=== PATIENT | female | born 1970 | race Caucasian/White ===

== ENCOUNTER 2019-09-20 19:06 | Emergency (ER) | payer BC ==
[~2019-09-20] VITALS: Ht 167.6 cm; Wt 68.0 kg
[~2019-09-20 19:06] MED LIST: BUTALB-ACETAMI1 EACH PO; ESTROGEN-METHY1 EACH; PEPCID AC20 MG PO; PRISTIQ25 MG; PROGESTERO50 MG/1 ML; TUSNEL LIQUID178 ML PO; ZITHROMAX500 MG PO
== END 2019-09-20 22:24 | disposition home or self-care (01) ==
LOC: ER 19:06
DX: R51 Headache (principal)

== ENCOUNTER 2019-09-25 19:54 | Emergency (ER) | payer BC ==
[~2019-09-25] VITALS: Ht 167.6 cm; Wt 68.0 kg
== END 2019-09-26 00:07 | disposition home or self-care (01) ==
LOC: ER 19:54
DX: J06.9 Acute upper respiratory infection, unspecified (principal); Z20.828 Contact with and (suspected) exposure to other viral communicable diseases

== ENCOUNTER 2020-03-14 12:30 | Emergency (ER) | payer BC ==
[~2020-03-14] VITALS: Ht 167.6 cm; Wt 62.6 kg
[2020-03-14] MEDS ORDERED: MUCINEX DM ER1 EAC1 PO (17:09)
[2020-03-14] MEDS ORDERED: AIRBORNE EFFER1 EACH PO (17:09)
[2020-03-14] MEDS ORDERED: SYMBICORT 16010.2 GM IH (17:09)
[2020-03-14] MEDS ORDERED: IVERMECTIN3 MG PO (17:09)
== END 2020-03-14 17:57 | disposition home or self-care (01) ==
LOC: ER 12:30
DX: R06.02 Shortness of breath (principal); R05 Cough; Z20.822 Contact with and (suspected) exposure to COVID-19

== ENCOUNTER 2020-03-21 17:21 | Emergency (ER) | payer BC ==
[~2020-03-21] VITALS: Ht 167.6 cm; Wt 60.3 kg
[~2020-03-21 17:21] MED LIST changes: +AIRBORNE EFFER1 EACH PO; +IVERMECTIN3 MG PO; +MUCINEX DM ER1 EAC1 PO; +SYMBICORT 16010.2 GM IH
[2020-03-21] MEDS ORDERED: LEVOFLOXACIN750 MG PO (17:44)
== END 2020-03-21 22:16 | disposition home or self-care (01) ==
LOC: ER 17:21
DX: R06.02 Shortness of breath (principal); Z20.822 Contact with and (suspected) exposure to COVID-19

== ENCOUNTER 2022-12-19 12:49 | Emergency (ER) | payer OTHER ==
[~2022-12-19] VITALS: Ht 167.6 cm; Wt 61.7 kg
[~2022-12-19 12:49] MED LIST changes: +LEVOFLOXACIN750 MG PO
[2022-12-19] MEDS ORDERED: ESCITALOPRA5 MG/5 ML PO (13:31)
[2022-12-19 15:08] LABS: HEMOGLOBIN 14.9 g/dL (12.0-15.00); MEAN CELL VOLUME 92.7 fL (80.00-100.00); MEAN CORPUSCULAR HEMOGLOBIN 31.4 pg (27.00-32.0); MEAN CORPUSCULAR HGB CONC 33.8 g/dl (32.0-36.0); PLATELET COUNT 266 K/uL (150-450); RED BLOOD COUNT 4.75 M/uL (4.00-6.00); RED CELL DISTRIBUTION WIDTH 12.5 % (11.5-14.5)
[2022-12-19 16:00] LABS: PH,URINE 5.5 (5.0-8.0); URINE APPEARANCE Cloudy; URINE BILIRRUBIN Negative (NEGATIVE); URINE BLOOD Small; URINE COLOR Yellow; URINE GLUCOSE Negative (NEGATIVE); URINE LEUKOCYTE Negative; URINE NITRATE Negative; URINE PROTEIN Negative (NEGATIVE); URINE UROBILINOGEN 0.2 E.U./dl
[2022-12-19 16:03] LABS: URINE BACTERIA 4679.5 uL (0.0-1933); URINE EPITHELIAL CELLS 32.6 uL (0.0-38.8); URINE RBC 39.3 uL (0.0-20.8); URINE WBC 51.1 uL (0.0-23.2)
== END 2022-12-19 16:48 | disposition home or self-care (01) ==
LOC: ER 12:49
PROVIDERS: General Practice
DX: G43.909 Migraine, unspecified, not intractable, without status migrainosus (principal); Z20.822 Contact with and (suspected) exposure to COVID-19

== ENCOUNTER 2022-12-23 10:04 | Emergency (ER) | payer OTHER ==
[~2022-12-23] VITALS: Ht 167.6 cm; Wt 61.7 kg
[~2022-12-23 10:04] MED LIST changes: +ESCITALOPRA5 MG/5 ML PO
== END 2022-12-23 11:25 | disposition home or self-care (01) ==
LOC: ER 10:04
DX: M43.6 Torticollis (principal); Z88.6 Allergy status to analgesic agent; Z88.8 Allergy status to other drugs, medicaments and biological substances

== ENCOUNTER 2023-02-01 14:06 | Inpatient (IN) | payer OTHER ==
[~2023-02-01] VITALS: Ht 167.6 cm; Wt 62.6 kg
[2023-02-01 16:21] LABS: HEMATOCRIT 47.6 % (36.0-45.00); HEMOGLOBIN 16.4 g/dL (12.0-15.00); MEAN CELL VOLUME 91.2 fL (80.00-100.00); MEAN CORPUSCULAR HEMOGLOBIN 31.3 pg (27.00-32.0); MEAN CORPUSCULAR HGB CONC 34.3 g/dl (32.0-36.0); PLATELET COUNT 395 K/uL (150-450); RED BLOOD COUNT 5.22 M/uL (4.00-6.00); RED CELL DISTRIBUTION WIDTH 13.3 % (11.5-14.5)
[2023-02-01 16:40] LABS: URINE APPEARANCE Clear; URINE BILIRRUBIN Negative (NEGATIVE); URINE BLOOD Moderate; URINE COLOR Yellow; URINE GLUCOSE Negative (NEGATIVE); URINE LEUKOCYTE Negative; URINE NITRATE Negative; URINE PROTEIN Negative (NEGATIVE); URINE UROBILINOGEN 0.2 E.U./dl
[2023-02-01 16:44] LABS: URINE EPITHELIAL CELLS 10.5 uL (0.0-38.8); URINE RBC 43.9 uL (0.0-20.8); URINE WBC 20.8 uL (0.0-23.2)
[2023-02-01 16:47] LABS: ALBUMIN 4.3 gm/dL (3.4-5.0); BILIRUBIN TOTAL 1.09 mg/dL (0.3-1.2); CALCIUM 9.7 mg/dL (8.5-10.1); CREATININE SERUM 0.85 mg/dL (0.55-1.02); GFR 70.51; POTASSIUM 3.93 mEq/L (3.5-5.1); TOTAL PROTEIN 9.3 gm/dL (6.4-8.2)
[2023-02-03 08:39] LABS: HEMATOCRIT 39.5 % (36.0-45.00); HEMOGLOBIN 13.4 g/dL (12.0-15.00); MEAN CELL VOLUME 91.7 fL (80.00-100.00); MEAN CORPUSCULAR HEMOGLOBIN 31.1 pg (27.00-32.0); MEAN CORPUSCULAR HGB CONC 33.9 g/dl (32.0-36.0); PLATELET COUNT 297 K/uL (150-450); RED BLOOD COUNT 4.31 M/uL (4.00-6.00); RED CELL DISTRIBUTION WIDTH 12.8 % (11.5-14.5)
[2023-02-03 09:02] LABS: CALCIUM 8.2 mg/dL (8.5-10.1); CREATININE SERUM 0.62 mg/dL (0.55-1.02); GFR 101.48; POTASSIUM 4.32 mEq/L (3.5-5.1)
[2023-02-06 07:00] LABS: CALCIUM 7.9 mg/dL (8.5-10.1); CREATININE SERUM 0.51 mg/dL (0.55-1.02); GFR 127.13; POTASSIUM 3.48 mEq/L (3.5-5.1)
[2023-02-06 07:02] LABS: HEMATOCRIT 36.7 % (36.0-45.00); HEMOGLOBIN 12.7 g/dL (12.0-15.00); MEAN CORPUSCULAR HEMOGLOBIN 31.4 pg (27.00-32.0); MEAN CORPUSCULAR HGB CONC 34.5 g/dl (32.0-36.0); PLATELET COUNT 287 K/uL (150-450); RED BLOOD COUNT 4.04 M/uL (4.00-6.00); RED CELL DISTRIBUTION WIDTH 12.6 % (11.5-14.5)
== END 2023-02-07 14:52 | disposition home or self-care (01) | DRG 389 ==
LOC: ER 14:07 → SEC-K 21:52 → SURH 21:52 → SEC-K 02-02 12:11 → SURH 02-02 16:47
PROVIDERS: Nurse Practitioner Family; Surgery; ADMIT Internal Medicine; ATTEND Internal Medicine
PROC: BW21YZZ Computerized Tomography (CT Scan) of Abdomen and Pelvis using Other Contrast (ICD-10-PCS; principal; 2023-02-03)
DX: K56.50 Intestinal adhesions [bands], unspecified as to partial versus complete obstruction (principal); K90.49 Malabsorption due to intolerance, not elsewhere classified